=== PATIENT | male | born 1975 | race Native Hawaiian/Other Pacific Islander ===

== ENCOUNTER → 2017-07-29 05:33 | Outpatient (CLI) | payer OTHER ==
[~2017-07-29 05:33] MED LIST: LOSA50TA PO; NEXIUM20 MG PO; PERCOCET1 TA3 PO; ROWEEPRA500 MG PO; SUTENT25 MG PO
== END | disposition home or self-care (01) ==
LOC: AMB 05:33
DX: G81.91 Hemiplegia, unspecified affecting right dominant side (principal)

== ENCOUNTER 2017-08-18 13:31 | Outpatient (CLI) | payer BC | END 2017-08-18 19:21 | disposition home or self-care (01) | LOC: RAD 13:31 | DX: R60.0 Localized edema (principal) ==

== ENCOUNTER 2017-08-24 17:15 | Outpatient (CLI) | payer BC ==
[2017-08-24] MEDS ORDERED: LOSA50TA PO (17:35)
[2017-08-24] MEDS ORDERED: NEXIUM20 MG PO (17:36)
[2017-08-24] MEDS ORDERED: ROWEEPRA500 MG PO (17:37)
[2017-08-24] MEDS ORDERED: PERCOCET1 TA3 PO (17:38)
[2017-08-24] MEDS ORDERED: SUTENT25 MG PO (17:40)
== END 2017-08-24 17:29 | disposition short-term general hospital (02) ==
LOC: AMB 17:15
DX: R07.89 Other chest pain (principal); R42 Dizziness and giddiness; R53.81 Other malaise
CPT/HCPCS: A0425; A0427

== ENCOUNTER 2017-08-24 17:29 | Inpatient (IN) | payer BC ==
[~2017-08-24] VITALS: Ht 182.9 cm; Wt 96.0 kg
[2017-08-24 17:32] VITALS: BP 129/69; TEMP 97.8
[2017-08-24] MEDS ORDERED: LOSA50TA PO (17:35)
[2017-08-24] MEDS ORDERED: NEXIUM20 MG PO (17:36)
[2017-08-24] MEDS ORDERED: ROWEEPRA500 MG PO (17:37)
[2017-08-24] MEDS ORDERED: PERCOCET1 TA3 PO (17:38)
[2017-08-24] MEDS ORDERED: SUTENT25 MG PO (17:40)
[2017-08-24 18:09] VITALS: BP 114/78
[2017-08-24 18:25] LABS: PLATELET COUNT 109 K/uL (142-355)
[2017-08-24 18:30] LABS: POTASSIUM 3.9 mmol/L (3.6-5.2)
[2017-08-24 18:45] LABS: PARTIAL THROMBOPLASTIN TIME 34.8 SECONDS (24.5-33.6)
[2017-08-24 18:54] VITALS: BP 124/90
[2017-08-24 19:24] VITALS: BP 119/79
[2017-08-24 19:52] VITALS: BP 117/83
[2017-08-25] VITALS: BP 117/76; BP 132/84; TEMP 97.5; TEMP 98.9; Ht 182.9 cm; Wt 96.0 kg
[2017-08-25 04:00] VITALS: BP 114/80; TEMP 97.6
[2017-08-25 08:00] VITALS: BP 128/85; TEMP 98.2
== END 2017-08-25 14:30 | disposition short-term general hospital (02) | DRG 193 ==
LOC: ED 17:29 → MED/SURG 19:28
DX: J18.8 Other pneumonia, unspecified organism (principal); I21.4 Non-ST elevation (NSTEMI) myocardial infarction; E87.1 Hypo-osmolality and hyponatremia; I82.493 Acute embolism and thrombosis of other specified deep vein of lower extremity, bilateral; I82.622 Acute embolism and thrombosis of deep veins of left upper extremity; E80.6 Other disorders of bilirubin metabolism; R74.8 Abnormal levels of other serum enzymes
CPT/HCPCS: 36415; 80053; 82550; 84484; 85027; 85379; 85610; 85730; 93005; 96361; 96365; 99284; J0696